=== PATIENT | male | born 1970 ===

== ENCOUNTER 2020-08-24 09:14 | Outpatient (REF) | payer SELFPAY | END 2020-08-24 09:15 | disposition home or self-care (01) | LOC: HO.SCI 09:14 | PROVIDERS: Visit Provider Psychiatry & Neurology Neurology | DX: Z13.89 Encounter for screening for other disorder (principal) ==

== ENCOUNTER → 2021-05-07 20:43 | Outpatient (REF) | payer OTHER, SELFPAY | LOC: HO.SL 20:43 | PROVIDERS: Visit Provider Psychiatry & Neurology Neurology | DX: G47.19 Other hypersomnia (principal); R06.83 Snoring | CPT/HCPCS: 95810 ==

== ENCOUNTER → 2021-05-10 09:23 | Outpatient (BNVA) | payer OTHER, SELFPAY | PROVIDERS: PCP Internal Medicine; Visit Provider Nurse Practitioner Family ==